=== PATIENT | male | born 1940 | race Caucasian/White ===

== ENCOUNTER 2016-08-03 07:05 | Inpatient (IN) | payer OTHER ==
--- NOTE | ~2016-08-03 | CO ---
Unit #: [id number] #: [id number] Patient: MURIEL CAVAZOS JR [id number] [address] [place], [place] [address] [id number] I MR#: [id number] NAME: MURIEL CAVAZOS JR ROOM: 303 Age: 76 Sex: M Admission Date: 08/03/2016 : 1940 Attending Physician: Kilo Mustafa M.D. Primary Care Physician: Lalita Marinelli M.D. CONSULTATION REPORT HISTORY OF PRESENT ILLNESS Mr. Cavazos is a 76-year-old white male with long history of chronic obstructive pulmonary disease. Over the past week, he has had increasing sputum production, wheeze, and shortness of breath. There has been no hemoptysis, hoarseness, or weight loss. He rarely has been hospitalized for this, but was seen by Dr. Mustafa approximately 4 years ago. PAST MEDICAL HISTORY Significant for COPD, hypertension, hyperlipidemia, colon polyps, but no heart disease or diabetes. MEDICATIONS Include Prinivil, amlodipine, Spiriva, Perforomist, Lipitor, and Ventolin. ALLERGIES He has no listed allergies. SOCIAL HISTORY He does have a smoking history and is a retired skilled laborer. FAMILY HISTORY Positive for asthma. REVIEW OF SYSTEMS Negative for chest pain, syncope, nausea, vomiting, diarrhea, rashes, or joint pains. PHYSICAL EXAMINATION GENERAL: He is a well-developed, well-nourished white male, in no acute distress. VITAL SIGNS: His temperature is 97.6, pulse 106, respirations 20, blood pressure 177/107, sats were 93% on 2 L. HEAD AND NECK: Unremarkable. Pupils are round and reactive to light. Sclerae nonicteric. NECK: There is no supraclavicular or cervical adenopathy. Trachea is midline. Thyroid is small. CHEST: There is increased AP diameter of the chest with bilateral wheezing. HEART: Systolic murmurs present without S3. ABDOMEN: Soft and nontender. No enlargement of the liver or spleen. EXTREMITIES: Showed no clubbing, cyanosis, or edema. JOINTS: Not inflamed. SKIN: Shows no acute rashes or ulcerations. NEUROLOGIC: He is awake, alert, and oriented x3 and showed no gross focal Unit #: [id number] #: [id number] Patient: MURIEL CAVAZOS JR. DIAGNOSTIC STUDIES LABORATORY RESULTS: His sodium was 136, potassium 4.1, chloride 101, CO2 of 24, glucose 151, BUN of 10, creatinine 0.7. White count 9.1, hemoglobin 16.4, hematocrit of 49.1. IMPRESSION Acute exacerbation of chronic obstructive pulmonary disease. Chest x-ray showed no acute infiltrates at this time. We will plan on inhaled bronchodilators, steroids, and noninvasive ventilations if required. Dictated by... Eric Castillo/tab TD: 08/03/2016 18:19 JOB #: [id number] CONSULTATION REPORT Page 1 of 1 X Franklin Villarreal MD X CONSULTATION REPORT
--- NOTE | ~2016-08-03 | EKG ---
PATIENT: MURIEL CORRIGAN UNIT #: [id number] Ventricular Rate: 88 BPM Atrial Rate: 88 BPM P-R Interval: 176 ms QRS Duration: 116 ms Q-T Interval: 376 ms QTC Calculation(Bezet): 454 ms P [place]: 80 degrees Calculated R [place]: -167 degrees Calculated T [place]: 46 degrees Diagnosis Line: Normal sinus rhythm Diagnosis Line: Right bundle branch block Diagnosis Line: Abnormal ECG Diagnosis Line: When compared with ECG of 17-MAY-2012 05:53, Diagnosis Line: No significant change was found Diagnosis Line: Confirmed by SULEMAN العراقي MD ([id number]) on Diagnosis Line: 08/03/2016 11:12:08 AM INTERPRETING : KARO
--- NOTE | ~2016-08-03 | DS ---
Unit #: [id number] #: [id number] Patient: MURIEL CORRIGAN JR [id number] [address] [place], [place] [address] [id number] I MR#: [id number] NAME: MURIEL CORRIGAN JR ROOM: 303 Age: 76 Sex: M Admission Date: 08/03/2016 : 1940 Discharge Date: 08/06/2016 Attending Physician: Kilo Mustafa M.D. Primary Care Physician: Lalita Marinelli M.D. DISCHARGE SUMMARY DISCHARGE DIAGNOSES 1. Acute hypoxemic respiratory failure, resolved. 2. Chronic obstructive pulmonary disease with exacerbation. 3. Tobacco abuse. 4. Hypertension. 5. Hyperlipidemia. DISCHARGE MEDICATIONS 1. Prednisone 40 mg tapered to off. 2. Zithromax 250 mg a day for 3 days. 3. Norvasc 5 mg a day. 4. Lipitor 20 mg at bedtime. 5. Zestril 40 mg a day. 6. Albuterol either as MDI or Mini-Neb q.i.d. p.r.n. 7. Perforomist nebulizer b.i.d. 8. Budesonide b.i.d. 9. Spiriva once a day. FOLLOW UP 1. Dr. Marinelli in 1-2 weeks. 2. Follow-up with Dr. Mustafa's nurse practitioner in 1-2 weeks. Arrange PFTs. 3. Follow-up with Dr. Mustafa in September as scheduled. DIET As tolerated. ACTIVITY No specific restrictions, saturation is 94% on room air. DESCRIPTION OF HOSPITALIZATION The patient was admitted through the emergency room with respiratory failure, COPD exacerbation. He was treated in usual fashion. He improved daily. On the day of discharge, he was ambulating without oxygen and without difficulty. He had some mild wheezing but markedly improved. We discussed not smoking. We will restart his inhaled steroids. Overall, he was discharged in markedly improved condition, and he will follow up as above. Dictated by... Kilo Mustafa M.D. YUE/popeye Unit #: [id number] #: [id number] Patient: MURIEL CORRIGAN JR TD: 08/06/2016 19:46 JOB #: [id number] DISCHARGE SUMMARY Page 1 of 1 X Kilo Mustafa MD DISCHARGE SUMMARY
--- NOTE | ~2016-08-03 | CR72 ---
[facility] A Service of [facility] & [facility] RADIOLOGY TEXT RESULTS PATIENT: MURIEL CORRIGAN JR LOCATION: [facility] - : 42 UNIT #: [id number] AGE: [address]: Kilo Mustafa MD SEX: M ORDER DR: [id number] [facility] [address] [place], [place] [address] [id number] I MR#: [id number] Acc #: [id number] NAME: MURIEL CORRIGAN JR : 1940 SEX: M STUDY DATE/TIME: 08/03/2016 7:39 UNIT: [address] ROOM: [facility] STUDY DESCRIPTION: CR Chest Single View Portable Attending Physician: Kilo Mustafa M.D. Ordering Physician: Guillermo Ayala M.D. Primary Care Physician: Lalita Marinelli M.D. MEDICAL IMAGING REPORT This report is preliminary unless electronic signature is present EXAM Portable AP view of the chest COMPARISON May 14, 2012. CT chest dated April 06, 2015. INDICATIONS 76-year-old male with dyspnea for 2 days. FINDINGS Cardiomediastinal silhouette is within normal limits. No evidence of pneumothorax, pleural effusion or acute airspace disease. Lrfqeypp-er-ijimouuj degenerative changes of both humeral heads. IMPRESSION No acute radiographic abnormality of the chest. Normal heart size. Dictated by... Jey Salinas M.D. THIS IS AN ELECTRONICALLY VERIFIED REPORT Jey Salinas M.D. at 08/06/2016 12:15 PM BLM/pcl TD: 08/03/2016 12:05 JOB #: [id number] MEDICAL IMAGING REPORT Page 1 of 1 COPY
[~2016-08-03 07:05] MED LIST: ALBUTEROL17 GM INH; ASPIRIN81 M1 PO; BUDESONIDE NEB; CENTRUM PO; DUONEB 2.5-0.5 M3 ML NEB; FISH OIL 1,2001 CAP PO; FORMOTEROL NEB; Fish Oil 1 PO; HUMIBID-LA600 MG PO; LIPITOR PO; LISINOPRIL PO; MEDROL DOSEPAK4 MG PO; MULTIVITAMIN1 UDCAP PO; NORVASC PO; PRINIVIL40 MG PO; PROTONIX PO; SPIRIVA IN; SYMBICORT INH; SYMBICORT80 INH; ZITHROMAX PO; ZOCOR PO
[2016-08-03 07:49] LABS: BASOPHIL# 0.1 X10e3 (0-0.3); BASOPHIL% 1.1 % (0-2.5); EOSINOPHIL# 0.9 X10e3 (0-0.7); EOSINOPHIL% 10.4 % (0.0-7.0); HEMATOCRIT 49.1 % (38.0-50.0); HEMOGLOBIN 16.4 gm/dL (13.0-16.0); LYMPHOCYTE# 2.7 X10e3 (1.0-3.5); LYMPHOCYTE% 29.7 % (17.0-45.0); MEAN CELL VOLUME 92.4 FL (83-96); MEAN CORPUSCULAR HEMOGLOBIN 30.8 PG (28-34); MEAN CORPUSCULAR HGB CONC 33.3 g/dL (30-36); MEAN PLATELET VOLUME 8.8 FL (6.5-11.5); MONOCYTE# 0.7 X10e3 (0-1.0); NEUTROPHIL# 4.6 X10e3 (1.5-7.1); NEUTROPHIL% 50.8 % (40-75); PLATELET COUNT 222 X10e3 (140-420); RED BLOOD COUNT 5.31 X10e (3.90-5.60); RED CELL DISTRIBUTION WIDTH 13.9 % (11.0-15.5); WHITE BLOOD COUNT 9.1 X10e3 (4.0-10.5)
[2016-08-03 07:52] LABS: DIFF IND NO
[2016-08-03 08:03] LABS: POC - CKMB <1.0 ng/mL (0.0-7.9); POC - TROPONIN <0.05 ng/mL (<=0.05)
[2016-08-03 08:14] LABS: ALBUMIN SERUM 4.2 g/dL (3.5-5.0); BILIRUBIN, DIRECT 0.1 mg/dL (0.0-0.2); BILIRUBIN,INDIRECT 0.9 mg/dL (0.0-0.9); BUN/CREATININE RATIO 14.28; CALCIUM SERUM 9.1 mg/dL (8.4-10.2); CREATININE SERUM 0.7 mg/dL (0.6-1.4); POTASSIUM 4.1 mmol/L (3.5-5.1); PROTEIN TOTAL SERUM 7.4 g/dL (6.0-8.3)
[2016-08-03 08:26] LABS: PROTHROMBIN TIME (PATIENT) 11.3 SECONDS (10.0-11.7)
[2016-08-03] MEDS ORDERED: AMLODIPINE BESYL5 MG PO (09:18)
[2016-08-03] MEDS ORDERED: SPIRIVA18 MCG INH (09:18)
[2016-08-03] MEDS ORDERED: PRINIVIL40 MG PO (09:18)
[2016-08-03] MEDS ORDERED: LIPITOR PO (09:19)
[2016-08-03] MEDS ORDERED: ALBUTEROL17 GM INH (09:19)
[2016-08-03] MEDS ORDERED: PERFOROMIS20 MCG/2 M INH (09:19)
[2016-08-04 05:53] LABS: HEMATOCRIT 46.4 % (38.0-50.0); HEMOGLOBIN 15.2 gm/dL (13.0-16.0); MEAN CELL VOLUME 93.1 FL (83-96); MEAN CORPUSCULAR HEMOGLOBIN 30.5 PG (28-34); MEAN CORPUSCULAR HGB CONC 32.8 g/dL (30-36); RED BLOOD COUNT 4.98 X10e (3.90-5.60); RED CELL DISTRIBUTION WIDTH 13.4 % (11.0-15.5)
[2016-08-04 06:00] LABS: WHITE BLOOD COUNT 15.5 X10e3 (4.0-10.5)
[2016-08-04 06:25] LABS: BUN/CREATININE RATIO 24.28; CALCIUM SERUM 9.3 mg/dL (8.4-10.2); CREATININE SERUM 0.7 mg/dL (0.6-1.4); POTASSIUM 4.1 mmol/L (3.5-5.1)
[2016-08-06] MEDS ORDERED: PREDNISONE PO (10:40)
[2016-08-06] MEDS ORDERED: ACETAMINOPHEN650 M3 PO (10:41)
[2016-08-06] MEDS ORDERED: ZITHROMAX PO (10:42)
[2016-08-06] MEDS ORDERED: PULMICORT0.5 MG/21 INH (10:45)
== END 2016-08-06 11:33 | disposition home or self-care (01) | DRG 189 ==
LOC: CED 07:05 → CEDOF 09:00 → C3A PCU 09:00 → CED 09:03 → CEDOF 09:03 → C3A PCU 11:48
PROVIDERS: Emergency Medicine; Internal Medicine
DX: J96.01 Acute respiratory failure with hypoxia (principal); J44.1 Chronic obstructive pulmonary disease with (acute) exacerbation; I10 Essential (primary) hypertension; F17.210 Nicotine dependence, cigarettes, uncomplicated; E78.5 Hyperlipidemia, unspecified; Z86.010 Personal history of colon polyps; Z82.5 Family history of asthma and other chronic lower respiratory diseases; Z79.51 Long term (current) use of inhaled steroids
CPT/HCPCS: 36415; 71010; 80048; 80076; 82553; 82947; 84484; 85025; 85027; 85610; 93005; 94640; 94644; 94664; 94760; 96374; 99285; J0456; J0696; J1650; J1815; J2920; J2930

== ENCOUNTER → 2016-09-02 | Outpatient (CLI) | payer OTHER ==
[~2016-09-02] MED LIST changes: +ACETAMINOPHEN650 M3 PO; +AMLODIPINE BESYL5 MG PO; +PERFOROMIS20 MCG/2 M INH; +PREDNISONE PO; +PULMICORT0.5 MG/21 INH; +SPIRIVA18 MCG INH
--- NOTE | ~2016-09-02 | US37 ---
[facility] A Service of [facility] & [facility] RADIOLOGY TEXT RESULTS PATIENT: MURIEL CORRIGAN JR LOCATION: [facility] : 42 UNIT #: [id number] AGE: [address]: Avery Kolb MD SEX: M ORDER DR: [id number] [facility] [address] [place], [place] [address] [id number] O MR#: [id number] Acc #: [id number] NAME: MURIEL CORRIGAN JR : 1940 SEX: M STUDY DATE/TIME: 09/02/2016 9:52 UNIT: [facility] ROOM: STUDY DESCRIPTION: US Carotid W/Doppler Bilateral Attending Physician: Avery Kolb M.D. Referring Physician: Avery Kolb M.D. Ordering Physician: Avery Kolb M.D. Primary Care Physician: Lalita Marinelli M.D. MEDICAL IMAGING REPORT This report is preliminary unless electronic signature is present EXAM Bilateral carotid Doppler date of exam 09/02/2016 HISTORY Hypertension, hyperlipidemia, carotid bruit. FINDINGS The right common internal and external carotid arteries are patent with diffuse mild to moderate plaque throughout. Velocity of common carotid artery is 69 cm/sec. Peak systolic velocity of the right proximal internal carotid artery 61 cm/sec with an end diastolic velocity of 20 cm/sec for an ICA/CCA ratio of 0.88. External carotid artery had a velocity of 102 cm/sec. The vertebral artery is visualized with antegrade flow. The left common carotid internal carotid and external carotid arteries are widely patent with mild diffuse plaque throughout. Velocity of the common carotid artery is 77 cm/sec. Peak systolic velocity of the left proximal internal carotid artery is 81 cm/sec with an end diastolic velocity of 18 cm/sec for an ICA/CCA ratio of 1.05. External carotid artery had a velocity of 97 cm/sec. The vertebral artery is visualized with antegrade flow. IMPRESSION 1. Less than 50% stenosis of the right and left internal carotid arteries. 2. No significant stenosis of the right or left external carotid arteries. 3. Antegrade flow of the vertebral arteries. Dictated by... [facility] A Service of [facility] & [facility] RADIOLOGY TEXT RESULTS PATIENT: MURIEL CORRIGAN JR LOCATION: [facility] : 42 UNIT #: [id number] AGE: [address]: Avery Kolb MD SEX: M ORDER DR: Avery Kolb M.D. THIS IS AN ELECTRONICALLY VERIFIED REPORT Avery Kolb M.D. at 09/03/2016 8:58 AM FPN/sharad TD: 09/03/2016 03:57 JOB #: [id number] MEDICAL IMAGING REPORT Page 1 of 1 COPY
--- NOTE | ~2016-09-02 | US135 ---
[facility] A Service of [facility] & [facility] RADIOLOGY TEXT RESULTS PATIENT: MURIEL CORRIGAN JR LOCATION: [facility] : 42 UNIT #: [id number] AGE: [address]: Avery Kolb MD SEX: M ORDER DR: [id number] [facility] [address] [place], [place] [address] [id number] O MR#: [id number] Acc #: [id number] NAME: MURIEL CORRIGAN JR : 1940 SEX: M STUDY DATE/TIME: 09/02/2016 9:22 UNIT: [facility] ROOM: STUDY DESCRIPTION: US U/L Ext Art Study Comp Reji Attending Physician: Avery Kolb M.D. Referring Physician: Avery Kolb M.D. Ordering Physician: Avery Kolb M.D. Primary Care Physician: Lalita Marinelli M.D. MEDICAL IMAGING REPORT This report is preliminary unless electronic signature is present EXAM Right and left lower extremity segmental pressure study, 09/02/2016 REASON FOR EXAM Peripheral arterial disease. FINDINGS The right brachial pressure is 131, left is 123. The right high thigh pressure is 160, low thigh 146, calf 146, dorsalis pedis 134 and posterior tibial 133 for an ARUN of 1.02 and a first toe pressure of 117 mmHg. Left high thigh pressure is 152, low thigh 155, calf 131, dorsalis pedis 137 and posterior tibial 129 for an ARUN of 1.05 and a first toe pressure of 118 mmHg. PVR waveforms from high thigh through ankle are normal and intact at all levels bilateral. First digital waveforms are intact and symmetric bilateral. Arterial waveforms of the dorsalis pedis and posterior tibial arteries are triphasic bilateral. IMPRESSION No arterial insufficiency in either the right or the left lower extremity, with adequate perfusion of the first toes. Dictated by... Avery Kolb M.D. THIS IS AN ELECTRONICALLY VERIFIED REPORT Avery Kolb M.D. at 09/03/2016 8:58 AM [facility] A Service of [facility] RADIOLOGY TEXT RESULTS PATIENT: MURIEL CORRIGAN JR LOCATION: [facility] : 42 UNIT #: [id number] AGE: [address]: Avery Kolb MD SEX: M ORDER DR: Saranya TD: 09/02/2016 21:45 JOB #: [id number] MEDICAL IMAGING REPORT Page 1 of 1 COPY
== END | disposition home or self-care (01) ==
LOC: CNIV 08:51
DX: I65.23 Occlusion and stenosis of bilateral carotid arteries (principal); I73.9 Peripheral vascular disease, unspecified
CPT/HCPCS: 93880; 93923